=== PATIENT | female | born 1940 | race Caucasian/White ===

== ENCOUNTER 2016-10-03 19:00 | Emergency (ER) | payer OTHER, BC ==
--- NOTE | 2016-10-03 19:18 | PDOC ---
History of Present Illness - General History Source: Patient Exam Limitations: No Limitations - History of Present Illness Initial Comments: 10/03/16 19:30 76 y/o F with a PMHx of diabetes, HTN presents to the ED with left shoulder pain s/p mechanical fall tonight. Patient states tripped on her way into her house and fell onto the tile floor. She reports movement exacerbates the pain. She took Advil after the fall with no relief. She denies hitting her head, LOC, dizziness, headache. She denies numbness, tingling. She denies chest pain, SOB. PCP: Dr. Peter Naidu - General Chief Complaint: Injury Stated Complaint: LEFT SHOULDER PAIN, S/P FALL Time Seen by Provider: 10/03/16 19:13 Past History - Past Medical History Allergies/Adverse Reactions: Allergies Allergy/AdvReac Type Severity Reaction Status Date / Time Penicillins Allergy Mild Rash Verified 10/03/16 19:02 Home Medications: Ambulatory Orders Atenolol/Chlorthalidone [Atenolol-Chlorthalidone 50-25] 1 each PO DAILY Calcium Carbonate/Vitamin D3 [Calcium 600-Vit D3 500 Softgel] 1 each PO BID Cholecalciferol (Vitamin D3) [Vitamin D3] 2,000 unit PO BID 10/03/16 Cyanocobalamin (Vitamin B-12) [B-12] 2,500 mcg SL DAILY 10/03/16 Ferrous Sulfate [Feosol] 325 mg PO Q72H 10/03/16 Glucosamine Sulfate Dipot Chlr [Glucosamine Sulfate] 2,000 mg PO BID 10/03/16 Metformin HCl 500 mg PO BID 10/03/16 Streetman-3/Dha/Epa/Fish Oil [Fish Oil Streetman-3 EC 1,200 mg] 1 each PO BID 10/03/16 Tramadol HCl 50 mg PO TID PRN #15 tablet MDD 2 tabs 10/03/16 Review of Systems - Review of Systems Able to Perform ROS?: Yes Comments:: 10/03/16 19:30 GENERAL/CONSTITUTIONAL: No fever or chills. No weakness. HEAD, EYES, EARS, NOSE AND THROAT: No change in vision. No ear pain or discharge. No sore throat. CARDIOVASCULAR: No chest pain or shortness of breath. RESPIRATORY: No cough, wheezing, or hemoptysis. GASTROINTESTINAL: No nausea, vomiting, diarrhea or constipation. GENITOURINARY: No dysuria, frequency, or change in urination. MUSCULOSKELETAL: (+) left shoulder pain. No neck or back pain. SKIN: No rash NEUROLOGIC: No headache, vertigo, loss of consciousness, or change in strength/ sensation. ENDOCRINE: No increased thirst. No abnormal weight change. HEMATOLOGIC/LYMPHATIC: No anemia, easy bleeding, or history of blood clots. ALLERGIC/IMMUNOLOGIC: No hives or skin allergy. *Physical Exam - Vital Signs Last Vital Signs Temp Pulse Resp BP Pulse Ox 97.7 F 81 16 172/96 97 10/03/16 19:02 10/03/16 19:02 10/03/16 19:02 10/03/16 19:02 10/03/16 19:02 - Physical Exam Comments: 10/03/16 19:31 GENERAL: Awake, alert, and fully oriented, in no acute distress HEAD: No signs of trauma EYES: PERRLA, EOMI, sclera anicteric, conjunctiva clear ENT: Auricles normal inspection, hearing grossly normal, nares patent, oropharynx clear without exudates. Moist mucosa NECK: Normal ROM, supple, no lymphadenopathy, JVD, or masses LUNGS: Breath sounds equal, clear to auscultation bilaterally. No wheezes, and no crackles HEART: Regular rate and rhythm, normal S1 and S2, no murmurs, rubs or gallops ABDOMEN: Soft, nontender, normoactive bowel sounds. No guarding, no rebound. No masses EXTREMITIES: (+) Moderate tenderness, mild edema, no ecchymosis, no significant deformity of proximal left humerus. Remainder of the left upper extremity has no edema, tenderness, or deformity. Neurovascularly intact, distal intact. No clubbing or cyanosis. No cords or erythema. NEUROLOGICAL: Cranial nerves II through XII grossly intact. Normal speech, normal gait SKIN: Warm, Dry, normal turgor, no rashes or lesions noted. *DC/Admit/Observation/Transfer - Attestations Scribe Attestion: 10/03/16 19:30 Documentation prepared by Juana Anthony, acting as medical orderly for Falguni Gonzalez MD. Diagnosis at time of Disposition: Fracture, humerus, proximal Qualifiers: Encounter type: initial encounter Fracture type: closed Fracture morphology: other fracture Fracture alignment: nondisplaced Laterality: left Qualified Code( s): S42.295A - Other nondisplaced fracture of upper end of left humerus, initial encounter for closed fracture - Discharge Dispostion Disposition: HOME Condition at time of disposition: Stable - Referrals Referrals: Peter Naidu MD [Primary Care Provider] - Jorge L Rice MD [Staff Physician] - 3 days - Patient Instructions Printed Discharge Instructions: DI for Humeral Fracture Additional Instructions: Keep sling in place on left side Ice to left shoulder for 2 days Advil/acetaminophen as needed for abdd-by-eagbtbae pain Tramadol 50 mg up to twice a day as needed for severe pain Follow-up with orthopedist (Dr. Rice) within the next 5 days Return to ER if you have severe pain/numbness or tingling in your left arm
[2016-10-03 19:24] VITALS: BP 172/96; PULSE 81; TEMP 97.7; BMI 24.7
== END 2016-10-03 20:37 | disposition home or self-care (01) ==
LOC: FER 19:00
DX: S42.295A Other nondisplaced fracture of upper end of left humerus, initial encounter for closed fracture (principal); W18.39XA Other fall on same level, initial encounter; Y93.89 Activity, other specified; Y92.008 Other place in unspecified non-institutional (private) residence as the place of occurrence of the external cause; I10 Essential (primary) hypertension; E11.9 Type 2 diabetes mellitus without complications
CPT/HCPCS: 73030-TC-LT; 99282-25

== ENCOUNTER 2021-01-02 20:04 | Inpatient (IN) | payer OTHER, BC ==
[2021-01-02 20:13] VITALS: BMI 25.7
[2021-01-02] MEDS ORDERED: ACETAMINOPHEN 1000 MG/100 ML VIAL IVPB ONE (20:54)
[2021-01-02] MEDS ORDERED: ACETAMINOPHEN INJECTION 100 ML IVPB ONE (20:57)
[2021-01-02 21:28] LABS: INR 1.06 (0.83-1.09); PROTHROMBIN TIME (PATIENT) 12.4 SEC (9.7-13.0)
[2021-01-02 21:41] LABS: CHLORIDE 105 mmol/L (98-107); SODIUM 139 mmol/L (136-145)
[2021-01-02 21:43] LABS: CALCIUM 9.3 mg/dL (8.5-10.1)
[2021-01-02 21:44] LABS: ALBUMIN 3.8 g/dl (3.4-5.0); BASO % 0.2 % (0-2.0); BLOOD UREA NITROGEN 26.5 mg/dL (7-18); EOS % 0.1 % (0-4.5); HEMOGLOBIN 13.8 GM/dL (10.7-15.3); LYMPH % 4.2 % (8-40); MAGNESIUM 2.3 mg/dL (1.8-2.4); MCH 30.5 pg (25.7-33.7); MCHC 33.6 g/dl (32.0-36.0); MEAN CELL VOLUME 90.8 fl (80-96); MEAN PLT VOLUME 8.5 fl (7.5-11.1); MONO % 3.8 % (3.8-10.2); NEUT % 91.7 % (42.8-82.8); PLATELET COUNT 253 10^3/uL (134-434); RBC 4.52 M/mm3 (3.60-5.2); RDW 13.7 % (11.6-15.6); WHITE BLOOD COUNT 18.1 K/mm3 (4.0-10.0)
[2021-01-02 21:47] LABS: CREATININE 0.9 mg/dL (0.55-1.3); PHOSPHOROUS 3.8 mg/dL (2.5-4.9); SGOT/AST 18 U/L (15-37); SGPT/ALT 18 U/L (13-61)
[2021-01-02 21:49] LABS: ALK PHOS 71 U/L (45-117); TOT PROT 7.2 g/dl (6.4-8.2)
[2021-01-02] MEDS ORDERED: morphine CARPU-JECT 2 MG/1 ML DISP.SYRIN IVPUSH ONE (22:03)
[2021-01-02 22:15] LABS: ANION GAP 8 MMOL/L (8-16); BILIRUBIN,TOTAL 0.6 mg/dL (0.2-1); CO2 27 mmol/L (21-32); GLUCOSE,RANDOM 188 mg/dL (74-106)
[2021-01-02] MEDS ORDERED: morphine SULFATE 4 MG/ML VIAL ONE (22:16)
[2021-01-02 22:36] LABS: ANISOCYTOSIS 0; PLATELET ESTIMATE NORMAL
[2021-01-03] MEDS ORDERED: ONDANSETRON 4 MG/2 ML VIAL IVPUSH PRN ×2 (00:19→18:59)
[2021-01-03] MEDS ORDERED: ACETAMINOPHEN 1000 MG/100 ML VIAL IVPB PRN (00:20)
[2021-01-03] MEDS ORDERED: DEXTROSE 5%-LACTATED RINGERS 1,000 ML IV SCH (00:30)
[2021-01-03] MEDS ORDERED: ACETAMINOPHEN 325 MG TABLET (FP) PO PRN ×2 (01:20→18:59)
[2021-01-03] MEDS ORDERED: morphine SULFATE 4 MG/ML VIAL ONE ×3 (01:48→10:35)
[2021-01-03] MEDS: morphine SULFATE 4 MG/ML VIAL IVPUSH PRN ×5 (02:00→20:49)
[2021-01-03 03:01] LABS: EPI CELLS 4 /uL (0-25.1); HYALINE CASTS 2 /uL (0-3.1); URINE APPEARANCE CLOUDY; URINE BACTERIA >9,000 /uL (0-1359); URINE BILIRUBIN NEGATIVE (NEGATIVE); URINE COLOR YELLOW; URINE GLUCOSE (UA) NEGATIVE (NEGATIVE); URINE KETONE 1+ (NEGATIVE); URINE LEUK ESTERASE NEGATIVE (NEGATIVE); URINE NITRITE POSITIVE (NEGATIVE); URINE PROTEIN NEGATIVE (NEGATIVE); URINE RBC 11 /uL (0-23.9); URINE UROBILINOGEN 0.2 mg/dL (0.2-1.0); URINE WBC 18 /uL (0-25.8)
[2021-01-03] MEDS ORDERED: CEFTRIAXONE 1,000 MG in DEXTROSE 5%-WATER - 50 ML IVPB ONE (03:17)
[2021-01-03] MEDS ORDERED: SODIUM CHLORIDE 0.9% 500 ML INFUS.BAG IV ONE (03:17)
[2021-01-03] MEDS ORDERED: CEFTRIAXONE 1 GM/50 ML BAG ONE (04:17)
[2021-01-03 06:40] LABS: EPI CELLS 4 /uL (0-25.1); HYALINE CASTS 1 /uL (0-3.1); URINE APPEARANCE CLEAR; URINE BACTERIA >9,000 /uL (0-1359); URINE BILIRUBIN NEGATIVE (NEGATIVE); URINE COLOR YELLOW; URINE GLUCOSE (UA) NEGATIVE (NEGATIVE); URINE KETONE 1+ (NEGATIVE); URINE LEUK ESTERASE NEGATIVE (NEGATIVE); URINE NITRITE POSITIVE (NEGATIVE); URINE PROTEIN NEGATIVE (NEGATIVE); URINE RBC 13 /uL (0-23.9); URINE UROBILINOGEN 0.2 mg/dL (0.2-1.0); URINE WBC 17 /uL (0-25.8)
[2021-01-03 08:33] LABS: BASO % 0.5 % (0-2.0); EOS % 0.1 % (0-4.5); HEMATOCRIT 34.9 % (32.4-45.2); HEMOGLOBIN 11.7 GM/dL (10.7-15.3); LYMPH % 13.2 % (8-40); MCH 30.4 pg (25.7-33.7); MCHC 33.5 g/dl (32.0-36.0); MEAN CELL VOLUME 90.5 fl (80-96); MEAN PLT VOLUME 8.4 fl (7.5-11.1); MONO % 5.9 % (3.8-10.2); NEUT % 80.3 % (42.8-82.8); PLATELET COUNT 248 10^3/uL (134-434); RBC 3.86 M/mm3 (3.60-5.2); RDW 13.7 % (11.6-15.6); WHITE BLOOD COUNT 14.8 K/mm3 (4.0-10.0)
[2021-01-03 08:44] LABS: CHLORIDE 106 mmol/L (98-107); SODIUM 139 mmol/L (136-145)
[2021-01-03 08:54] LABS: ALBUMIN 3.1 g/dl (3.4-5.0); ANION GAP 5 MMOL/L (8-16); CALCIUM 8.5 mg/dL (8.5-10.1); CO2 28 mmol/L (21-32); GLUCOSE,RANDOM 176 mg/dL (74-106)
[2021-01-03 08:55] LABS: MAGNESIUM 2.1 mg/dL (1.8-2.4)
[2021-01-03 08:56] LABS: CHOLESTEROL 132 mg/dL (50-200); SGOT/AST 15 U/L (15-37)
[2021-01-03 08:57] LABS: CREATININE 0.8 mg/dL (0.55-1.3); PHOSPHOROUS 4.5 mg/dL (2.5-4.9); SGPT/ALT 14 U/L (13-61); TRIGLYCERIDES 75 mg/dL (0-150)
[2021-01-03 08:58] LABS: ALK PHOS 58 U/L (45-117); BILIRUBIN,TOTAL 0.5 mg/dL (0.2-1); LDL CHOLESTEROL (ONLY SJRH) 70 mg/dL (5-100)
[2021-01-03 09:00] LABS: HDL CHOLESTEROL 41 mg/dL (40-60)
[2021-01-03] MEDS: INSULIN SLIDING SCALE (NOVOLOG) 1 VIAL SQ SCH ×4 (10:32→21:42)
[2021-01-03] MEDS ORDERED: ATENOLOL 25 MG TABLET (FP) PO ONE (13:33)
[2021-01-03] MEDS ORDERED: ATENOLOL 25 MG TABLET (FP) ONE (14:32)
[2021-01-03] MEDS ORDERED: PROPOFOL 20 ML ONE (17:07)
[2021-01-03] MEDS ORDERED: MIDAZOLAM HCL 2 MG/2 ML SINGLE DOSE VIAL ONE (17:07)
[2021-01-03] MEDS ORDERED: ceFAZolin SODIUM 1 GM VIAL ONE (17:56)
[2021-01-03] MEDS ORDERED: ONDANSETRON 4 MG/2 ML VIAL ONE (17:59)
[2021-01-03] MEDS ORDERED: DEXAMETHASONE SOD PHOSPHATE 4 MG/1 ML VIAL ONE (17:59)
[2021-01-03] MEDS ORDERED: oxyCODONE HCL 5 MG TABLET PO PRN (18:55)
[2021-01-03] MEDS ORDERED: LACTATED RINGERS SOLUTION 1,000 ML IV SCH (19:00)
[2021-01-03] MEDS: DEXTROSE 5%-LACTATED RINGERS 1,000 ML IV SCH (20:05)
[2021-01-03] MEDS: ATORVASTATIN CA 10 MG TABLET (FP) PO SCH (21:46)
[2021-01-03] MEDS ORDERED: ATORVASTATIN CA 10 MG TABLET (FP) PO SCH (22:00)
[2021-01-04] MEDS ORDERED: CEFAZOLIN 2 GM in DEXTROSE 5%-WATER - 100 ML IVPB SCH (02:00)
[2021-01-04] MEDS: CEFAZOLIN 2 GM in DEXTROSE 5%-WATER - 100 ML IVPB SCH ×2 (02:29→10:30)
[2021-01-04] MEDS ORDERED: DOCUSATE SODIUM 100 MG CAPSULE (FP) PO SCH (06:00)
[2021-01-04] MEDS: DOCUSATE SODIUM 100 MG CAPSULE (FP) PO SCH ×3 (06:24→23:19)
[2021-01-04] MEDS: INSULIN SLIDING SCALE (NOVOLOG) 1 VIAL SQ SCH ×4 (06:28→23:20)
[2021-01-04] MEDS ORDERED: cefTRIAXone SODIUM 1 GM VIAL ONE (09:01)
[2021-01-04] MEDS ORDERED: DEXTROSE 5%-WATER - 50 ML IVPB ONE (09:01)
[2021-01-04] MEDS ORDERED: MINERAL OIL ENEMA 133 ML ENEMA RC ONE (09:23)
[2021-01-04] MEDS ORDERED: CEFTRIAXONE 1 GM in DEXTROSE 5%-WATER - 50 ML IVPB SCH ×2 (10:00)
[2021-01-04] MEDS ORDERED: ATENOLOL 50 MG TABLET (FP) PO SCH (10:00)
[2021-01-04] MEDS ORDERED: LISINOPRIL 5 MG TABLET PO SCH (10:00)
[2021-01-04] MEDS: POLYETHYLENE GLYCOL (HEALTHYLAX) 3350 17 GM PACKET PO SCH (10:28)
[2021-01-04] MEDS: LISINOPRIL 5 MG TABLET PO SCH (10:29)
[2021-01-04] MEDS: ATENOLOL 50 MG TABLET (FP) PO SCH (10:29)
[2021-01-04] MEDS: CEFTRIAXONE 1 GM in DEXTROSE 5%-WATER - 50 ML IVPB SCH (17:09)
[2021-01-04] MEDS ORDERED: PT OWN MED DRAWER 7, Y5N ONE (18:02)
[2021-01-04] MEDS: DEXTROSE 5%-LACTATED RINGERS 1,000 ML IV SCH (18:37)
[2021-01-04] MEDS: morphine SULFATE 4 MG/ML VIAL IVPUSH PRN (20:42)
[2021-01-04] MEDS: ENOXAPARIN NA (PORCINE) 30 MG/0.3 ML DISP.SYRIN SQ SCH (23:19)
[2021-01-04] MEDS: ATORVASTATIN CA 10 MG TABLET (FP) PO SCH (23:19)
[2021-01-05] MEDS: INSULIN SLIDING SCALE (NOVOLOG) 1 VIAL SQ SCH ×3 (06:35→17:21)
[2021-01-05] MEDS: DOCUSATE SODIUM 100 MG CAPSULE (FP) PO SCH ×3 (06:35→15:33)
[2021-01-05 07:42] LABS: CALCIUM 7.9 mg/dL (8.5-10.1)
[2021-01-05 07:43] LABS: BLOOD UREA NITROGEN 21.5 mg/dL (7-18)
[2021-01-05 07:46] LABS: CREATININE 0.9 mg/dL (0.55-1.3)
[2021-01-05 07:48] LABS: BILIRUBIN,TOTAL 0.5 mg/dL (0.2-1)
[2021-01-05 07:53] LABS: BASO % 0.1 % (0-2.0); EOS % 0.7 % (0-4.5); HEMATOCRIT 24.3 % (32.4-45.2); HEMOGLOBIN 8.4 GM/dL (10.7-15.3); LYMPH % 9.7 % (8-40); MCH 31.3 pg (25.7-33.7); MCHC 34.6 g/dl (32.0-36.0); MEAN CELL VOLUME 90.4 fl (80-96); MEAN PLT VOLUME 8.7 fl (7.5-11.1); MONO % 6.5 % (3.8-10.2); PLATELET COUNT 176 10^3/uL (134-434); RBC 2.68 M/mm3 (3.60-5.2); RDW 13.4 % (11.6-15.6)
[2021-01-05 07:57] LABS: ALBUMIN 2.2 g/dl (3.4-5.0)
[2021-01-05] MEDS ORDERED: cefTRIAXone SODIUM 1 GM VIAL ONE (10:21)
[2021-01-05] MEDS ORDERED: DEXTROSE 5%-WATER - 50 ML IVPB ONE (10:21)
[2021-01-05] MEDS: morphine SULFATE 4 MG/ML VIAL IVPUSH PRN (10:26)
[2021-01-05] MEDS: CEFTRIAXONE 1 GM in DEXTROSE 5%-WATER - 50 ML IVPB SCH (10:27)
[2021-01-05] MEDS: ENOXAPARIN NA (PORCINE) 30 MG/0.3 ML DISP.SYRIN SQ SCH (10:28)
[2021-01-05] MEDS: POLYETHYLENE GLYCOL (HEALTHYLAX) 3350 17 GM PACKET PO SCH (10:28)
[2021-01-05] MEDS: ATENOLOL 50 MG TABLET (FP) PO SCH (10:28)
[2021-01-05] MEDS: LISINOPRIL 5 MG TABLET PO SCH (10:29)
[2021-01-05] MEDS ORDERED: FERROUS SO4 325 MG TABLET (FP) PO SCH ×2 (12:00)
[2021-01-05] MEDS ORDERED: MULTIVITAMINS (DAILY MVI) TABLET (FP) PO SCH (12:00)
[2021-01-05] MEDS ORDERED: BISACODYL 10 MG SUPP.RECT PR ONE (16:07)
[2021-01-05 18:40] VITALS: BP 125/65; PULSE 76; TEMP 98.7
[2021-01-05] MEDS ORDERED: CEFUROXIME AXETIL 500 MG TABLET PO SCH (22:00)
== END 2021-01-05 21:00 | disposition home or self-care (01) | DRG 481 ==
LOC: JER 20:04 → JERBED 22:11 → J4W 01-03 17:01
PROVIDERS: ATTEND Nurse Practitioner Family
PROC: 0QS706Z Reposition Left Upper Femur with Intramedullary Internal Fixation Device, Open Approach (ICD-10-PCS; principal; 2021-01-03 17:00)
DX: S72.142A Displaced intertrochanteric fracture of left femur, initial encounter for closed fracture (principal); N39.0 Urinary tract infection, site not specified; I10 Essential (primary) hypertension; E78.5 Hyperlipidemia, unspecified; E11.9 Type 2 diabetes mellitus without complications; W18.30XA Fall on same level, unspecified, initial encounter; Y92.098 Other place in other non-institutional residence as the place of occurrence of the external cause; B96.20 Unspecified Escherichia coli [E. coli] as the cause of diseases classified elsewhere; D72.829 Elevated white blood cell count, unspecified
CPT/HCPCS: 36415; 70450-TC; 71045-TC-FY; 72125-TC; 73523-TC-FY; 73560-TC-LT-FY; 80053; 80061; 81003; 82550; 82962; 83036; 83735; 84100; 84443; 84484; 85025; 85610; 85730; 86850; 86900; 86901; 87040; 87086; 87186; 93005; 93010; 94760; 97116-GP; 97161-GP; 99285-25; C9803; J0131; U0003; U0005

== ENCOUNTER 2023-09-11 01:55 | Inpatient (IN) | payer OTHER, BC ==
[2023-09-11] MEDS ORDERED: ACETAMINOPHEN INJECTION 100 ML IVPB ONE ×2 (03:11→13:31)
[2023-09-11] MEDS: ACETAMINOPHEN 1000 MG/100 ML BAG IVPB ONE ×2 (03:30→13:35)
[2023-09-11 03:39] LABS: BASO % 0.3 % (0-2.0); HEMATOCRIT 41.7 % (32.4-45.2); HEMOGLOBIN 14.5 GM/dL (10.7-15.3); LYMPH % 12.2 % (8-40); MCH 31.5 pg (25.7-33.7); MCHC 34.8 g/dl (32.0-36.0); MEAN CELL VOLUME 90.6 fl (80-96); MEAN PLT VOLUME 7.6 fl (7.5-11.1); MONO % 5.9 % (3.8-10.2); NEUT % 80.6 % (42.8-82.8); PLATELET COUNT 244 10^3/uL (134-434); RBC 4.61 M/mm3 (3.60-5.2); RDW 13.6 % (11.6-15.6)
[2023-09-11 03:57] LABS: POTASSIUM 4.2 mmol/L (3.5-5.1)
[2023-09-11 03:59] LABS: CALCIUM 9.3 mg/dL (8.5-10.1)
[2023-09-11 04:00] LABS: ALBUMIN 3.6 g/dl (3.4-5.0); BLOOD UREA NITROGEN 24.7 mg/dL (7-18); MAGNESIUM 1.9 mg/dL (1.8-2.4)
[2023-09-11 04:04] LABS: BILIRUBIN,TOTAL 0.6 mg/dL (0.2-1)
[2023-09-11 04:05] LABS: TOT PROT 6.7 g/dl (6.4-8.2)
[2023-09-11] MEDS ORDERED: MORPHINE SULFATE 2 MG/ML SYRINGE ONE ×2 (04:14→06:37)
[2023-09-11] MEDS: morphine CARPU-JECT 2 MG/1 ML DISP.SYRIN IVPUSH ONE (04:21)
[2023-09-11] MEDS ORDERED: ACETAMINOPHEN 325 MG TABLET (FP) PO PRN (05:54)
[2023-09-11] MEDS ORDERED: ACETAMINOPHEN 1000 MG/100 ML BAG IVPB PRN (06:19)
[2023-09-11] MEDS: morphine CARPU-JECT 2 MG/1 ML DISP.SYRIN IVPUSH PRN (06:42)
[2023-09-11 06:48] LABS: BASO % 0.4 % (0-2.0); EOS % 0.2 % (0-4.5); HEMATOCRIT 40.5 % (32.4-45.2); HEMOGLOBIN 13.6 GM/dL (10.7-15.3); MCH 30.6 pg (25.7-33.7); MCHC 33.6 g/dl (32.0-36.0); MEAN PLT VOLUME 8.1 fl (7.5-11.1); MONO % 5.1 % (3.8-10.2); NEUT % 84.3 % (42.8-82.8); PLATELET COUNT 247 10^3/uL (134-434); RBC 4.46 M/mm3 (3.60-5.2); RDW 13.5 % (11.6-15.6); WHITE BLOOD COUNT 14.2 K/mm3 (4.0-10.0)
[2023-09-11] MEDS ORDERED: MORPHINE SULFATE 2 MG/ML SYRINGE IVPUSH PRN (06:49)
[2023-09-11 07:05] LABS: POTASSIUM 4.1 mmol/L (3.5-5.1)
[2023-09-11 07:07] LABS: CALCIUM 9.5 mg/dL (8.5-10.1)
[2023-09-11 07:08] LABS: ALBUMIN 3.7 g/dl (3.4-5.0); BLOOD UREA NITROGEN 21.8 mg/dL (7-18); MAGNESIUM 1.7 mg/dL (1.8-2.4)
[2023-09-11 07:09] LABS: INR 1.01 (0.83-1.09); PROTHROMBIN TIME (PATIENT) 11.6 SEC (9.7-13.0)
[2023-09-11 07:11] LABS: CREATININE 0.8 mg/dL (0.55-1.3); PHOSPHOROUS 3.2 mg/dL (2.5-4.9)
[2023-09-11 07:13] LABS: BILIRUBIN,TOTAL 0.7 mg/dL (0.2-1); TOT PROT 6.6 g/dl (6.4-8.2)
[2023-09-11 07:46] VITALS: BMI 24.0
[2023-09-11] MEDS: LIDOCAINE 5% TOPICAL PATCH TP SCH (08:47)
[2023-09-11] MEDS: ATENOLOL 50 MG TABLET (FP) PO SCH (09:26)
[2023-09-11] MEDS: HYDROCHLOROTHIAZIDE 12.5 MG CAPSULE (FP) PO SCH (09:27)
[2023-09-11] MEDS: LISINOPRIL 10 MG TABLET PO SCH (09:27)
[2023-09-11] MEDS ORDERED: MIDAZOLAM HCL 2 MG/2 ML SINGLE DOSE VIAL ONE (09:38)
[2023-09-11] MEDS ORDERED: PROPOFOL 80 ML ONE (09:38)
[2023-09-11] MEDS ORDERED: LIDOCAINE HCL/PF 2% SDV 5ML VIAL ONE (09:38)
[2023-09-11] MEDS ORDERED: BUPIVACAINE HCL/PF 0.5% (5MG/ML) 10 ML VIAL ONE (09:45)
[2023-09-11] MEDS: MAGNESIUM 2GM/50ML STERILE WATER IVPB IVPB ONE (09:53)
[2023-09-11] MEDS: ceFAZolin SODIUM 1 GM VIAL IVPB ONE (11:00)
[2023-09-11] MEDS ORDERED: ceFAZolin SODIUM 1 GM VIAL ONE (11:01)
[2023-09-11] MEDS ORDERED: TRANEXAMIC ACID 1000 MG/10 ML VIAL ONE (11:40)
[2023-09-11] MEDS ORDERED: PROMETHAZINE HCL 25 MG/1 ML VIAL IVPB PRN (12:52)
[2023-09-11] MEDS ORDERED: ONDANSETRON 4 MG/2 ML VIAL IVPUSH PRN (12:52)
[2023-09-11] MEDS ORDERED: ONDANSETRON 4 MG/2 ML VIAL ONE (14:19)
[2023-09-11] MEDS: ONDANSETRON 2 MG/1 ML - 20ML MDV IVPB ONE (14:22)
[2023-09-11] MEDS: ATORVASTATIN CA 10 MG TABLET (FP) PO SCH (21:02)
[2023-09-11] MEDS: LIDOCAINE PATCH REMOVAL MC SCH (21:02)
[2023-09-11] MEDS ORDERED: ATORVASTATIN CA 10 MG TABLET (FP) PO SCH (22:00)
[2023-09-11] MEDS ORDERED: LIDOCAINE PATCH REMOVAL MC SCH ×2 (22:00)
[2023-09-12] MEDS: CEFAZOLIN 1 GM in DEXTROSE 5%-WATER - 50 ML IVPB SCH (01:33)
[2023-09-12] MEDS: MELATONIN 5 MG TABLETS PO PRN (01:33)
[2023-09-12] MEDS ORDERED: CEFAZOLIN 1 GM/D5W 50 ML IVPB SCH (02:00)
[2023-09-12] MEDS: ACETAMINOPHEN 1000 MG/100 ML BAG IVPB PRN (06:16)
[2023-09-12] MEDS ORDERED: MIRABEGRON 50 MG PO SCH (10:00)
[2023-09-12] MEDS: LISINOPRIL 10 MG TABLET PO SCH (10:16)
[2023-09-12] MEDS: HYDROCHLOROTHIAZIDE 12.5 MG CAPSULE (FP) PO SCH (10:16)
[2023-09-12] MEDS: LIDOCAINE 5% TOPICAL PATCH TP SCH (10:17)
[2023-09-12] MEDS: ENOXAPARIN NA (PORCINE) 40 MG/0.4 ML DISP.SYRIN SQ SCH (10:18)
[2023-09-12] MEDS: ATENOLOL 50 MG TABLET (FP) PO SCH (10:20)
[2023-09-12] MEDS: MIRABEGRON 50 MG PO SCH (10:21)
[2023-09-12] MEDS: LACTATED RINGERS SOLUTION 1,000 ML IV SCH (10:21)
[2023-09-12 11:01] LABS: HEMATOCRIT 36.8 % (32.4-45.2); HEMOGLOBIN 12.8 GM/dL (10.7-15.3); MCH 31.3 pg (25.7-33.7); MCHC 34.7 g/dl (32.0-36.0); MEAN CELL VOLUME 90.4 fl (80-96); MEAN PLT VOLUME 8.1 fl (7.5-11.1); PLATELET COUNT 212 10^3/uL (134-434); RBC 4.07 M/mm3 (3.60-5.2); RDW 13.6 % (11.6-15.6); WHITE BLOOD COUNT 10.2 K/mm3 (4.0-10.0)
[2023-09-12 11:11] VITALS: RESP 18
[2023-09-12 11:16] LABS: BLOOD UREA NITROGEN 21.7 mg/dL (7-18)
[2023-09-12 11:20] LABS: TOT PROT 5.8 g/dl (6.4-8.2)
[2023-09-12 11:21] LABS: ALBUMIN 2.9 g/dl (3.4-5.0); PHOSPHOROUS 2.9 mg/dL (2.5-4.9)
[2023-09-12 11:24] LABS: CALCIUM 8.6 mg/dL (8.5-10.1)
[2023-09-12] MEDS: INSULIN ASPART SLIDING SCALE (NOVOLOG) 1 VIAL SQ SCH (17:30)
[2023-09-12] MEDS ORDERED: INSULIN ASPART SLIDING SCALE (NOVOLOG) 1 VIAL SQ ONE (17:32)
[2023-09-13 08:45] LABS: BASO % 0.2 % (0-2.0); HEMATOCRIT 36.8 % (32.4-45.2); HEMOGLOBIN 12.5 GM/dL (10.7-15.3); LYMPH % 10.6 % (8-40); MCH 30.8 pg (25.7-33.7); MEAN CELL VOLUME 90.4 fl (80-96); MEAN PLT VOLUME 8.3 fl (7.5-11.1); MONO % 7.1 % (3.8-10.2); NEUT % 79.1 % (42.8-82.8); PLATELET COUNT 181 10^3/uL (134-434); RBC 4.07 M/mm3 (3.60-5.2); RDW 13.6 % (11.6-15.6)
[2023-09-13 09:07] LABS: POTASSIUM 4.1 mmol/L (3.5-5.1)
[2023-09-13 09:13] LABS: ALBUMIN 2.8 g/dl (3.4-5.0); BLOOD UREA NITROGEN 21.9 mg/dL (7-18); CALCIUM 8.5 mg/dL (8.5-10.1)
[2023-09-13 09:15] LABS: CREATININE 0.9 mg/dL (0.55-1.3)
[2023-09-13 09:16] LABS: TOT PROT 5.7 g/dl (6.4-8.2)
[2023-09-13 09:17] LABS: BILIRUBIN,TOTAL 0.7 mg/dL (0.2-1)
[2023-09-14 06:54] VITALS: BP 119/70; PULSE 96; TEMP 98.8
[2023-09-14 08:41] LABS: BASO % 0.3 % (0-2.0); EOS % 3.1 % (0-4.5); HEMATOCRIT 35.3 % (32.4-45.2); HEMOGLOBIN 12.2 GM/dL (10.7-15.3); LYMPH % 12.4 % (8-40); MCH 31.1 pg (25.7-33.7); MCHC 34.6 g/dl (32.0-36.0); MEAN CELL VOLUME 89.9 fl (80-96); MEAN PLT VOLUME 8.3 fl (7.5-11.1); MONO % 9.4 % (3.8-10.2); NEUT % 74.8 % (42.8-82.8); PLATELET COUNT 178 10^3/uL (134-434); RBC 3.93 M/mm3 (3.60-5.2); RDW 13.4 % (11.6-15.6); WHITE BLOOD COUNT 8.2 K/mm3 (4.0-10.0)
[2023-09-14 09:11] LABS: POTASSIUM 3.6 mmol/L (3.5-5.1)
[2023-09-14 09:18] LABS: ALBUMIN 2.5 g/dl (3.4-5.0); BLOOD UREA NITROGEN 25.2 mg/dL (7-18)
[2023-09-14 09:20] LABS: BILIRUBIN,TOTAL 0.8 mg/dL (0.2-1); TOT PROT 5.5 g/dl (6.4-8.2)
[2023-09-14 09:21] LABS: CALCIUM 8.6 mg/dL (8.5-10.1); CREATININE 0.8 mg/dL (0.55-1.3)
[2023-09-14 09:22] LABS: MAGNESIUM 1.9 mg/dL (1.8-2.4)
== END 2023-09-14 10:48 | DRG 522 ==
LOC: JER 01:55 → JERBED 05:54 → J8W 07:29
PROVIDERS: ADMIT Internal Medicine; ATTEND Internal Medicine
PROC: 0SRR0J9 Replacement of Right Hip Joint, Femoral Surface with Synthetic Substitute, Cemented, Open Approach (ICD-10-PCS; principal; 2023-09-11 09:50)
DX: S72.041A Displaced fracture of base of neck of right femur, initial encounter for closed fracture (principal); I10 Essential (primary) hypertension; E11.9 Type 2 diabetes mellitus without complications; E78.5 Hyperlipidemia, unspecified; M81.0 Age-related osteoporosis without current pathological fracture; W01.0XXA Fall on same level from slipping, tripping and stumbling without subsequent striking against object, initial encounter; Y92.098 Other place in other non-institutional residence as the place of occurrence of the external cause; Y99.9 Unspecified external cause status
CPT/HCPCS: 36415; 71045-TC-FY; 73502-TC-RT-FY; 80053; 82962; 83036; 83735; 84100; 85025; 85027; 85610; 86850; 86900; 86901; 87635; 88305-TC; 88311-TC; 93005; 93010; 94010; 94760; 97116-GP; 97161-GP; 99285-25; C1776; C1889; J0131; J2405